=== PATIENT | female | born 1995 | race Caucasian/White ===

== ENCOUNTER 2020-04-01 23:34 | Emergency (ER) | payer OTHER ==
[2020-04-02 00:55] LABS: BASOPHIL 0.4 % (0-2); HCT 35.8 % (37.0-47.0); HGB 11.6 g/dl (12.5-16.0); MCH 27.6 pg (25.0-31.0); MCHC 32.4 g/dL (32.0-36.0); MCV 85.2 fL (78.0-100.0); MONOCYTE 6.2 % (0-12); MPV 10.5 fL (6.0-9.5); NRBC 0; PLT 292 K/uL (150-400); RDW 13.4 % (11.5-14.0); WBC 8.3 K/uL (4.0-10.5)
[2020-04-02 01:12] LABS: INR 1.02 (0.9-1.2); PROTHROMBIN TIME 12.7 SECONDS (11.4-13.6); PTT 27.9 SECONDS (22.2-34.7)
[2020-04-02 01:14] LABS: D-DIMER 0.41 ug/mLFEU (0.00-0.41)
[2020-04-02 01:19] LABS: ALBUMIN 3.9 g/dL (3.4-5.0); BILIRUBIN - TOTAL 0.2 mg/dL (0.2-1.0); BUN/CREAT RATIO (CALC) 27.7 RATIO; CREATININE 0.65 mg/dL (0.51-0.95); GLOBULIN (CALCULATION) 3.7 g/dL; POTASSIUM 3.8 mmol/L (3.5-5.1); TOTAL PROTEIN 7.6 g/dL (6.4-8.2)
== END 2020-04-02 04:20 | disposition home or self-care (01) ==
LOC: FER 23:34
PROVIDERS: Emergency Medicine Emergency Medical Services
DX: R07.89 Other chest pain (principal); R10.11 Right upper quadrant pain; R10.13 Epigastric pain; R11.0 Nausea; I10 Essential (primary) hypertension; Z79.899 Other long term (current) drug therapy
CPT/HCPCS: 36415; 71045; 71275; 80053; 83690; 84484; 85025; 85379; 85610; 85730; 93005; Q9967